=== PATIENT | male | born 1950 | race Caucasian/White ===

== ENCOUNTER 2018-07-12 08:15 | Day surgery (SDC) | payer OTHER, BC ==
[2018-07-12 08:19] VITALS: BMI 30.7
[2018-07-12] MEDS ORDERED: Verapamil 2 ML ONE (08:31)
[2018-07-12] MEDS ORDERED: Phenylephrine 10 mg/ml Inj ONE (08:31)
[2018-07-12] MEDS ORDERED: Lidocaine PF 2% (5 ml) Inj (For Cardiac Arrhy) ONE (08:31)
[2018-07-12] MEDS ORDERED: Nitroglycerin 50mg in D5W 50 MG/250 ML BOTTLE IV ONE (08:32)
[2018-07-12] MEDS ORDERED: Iodixanol 320 MG/ML 100 ML BOTTLE IV ONE (08:32)
[2018-07-12] MEDS ORDERED: Midazolam 2 MG/2 ML VIAL ONE ×3 (08:32→09:44)
[2018-07-12] MEDS ORDERED: Iodixanol 320 MG/ML 200 ML BOTTLE IV ONE (08:32)
[2018-07-12] MEDS ORDERED: Adenosine 90 mg/30mL IV ONE (08:44)
[2018-07-12] MEDS ORDERED: DiphenhydrAMINE 50 mg/ml Inj ONE (09:41)
[2018-07-12] MEDS ORDERED: Iodixanol 320 mg/ml 150 ml Bottle IV ONE (09:47)
[2018-07-12] MEDS ORDERED: Sodium Chloride 0.9% 1,000 ML IV SCH (10:30)
[2018-07-12] MEDS ORDERED: A C T ELECTRONICS XX ONE (13:26)
[2018-07-12] MEDS ORDERED: Bacitracin 500 Units/gm Oint Foilpak UD ONE (14:45)
--- NOTE | 2018-07-12 19:59 | CARDCATH ---
PROCEDURE DATE: 07/12/2018 INDICATIONS: Mr. Betancourt is a pleasant 68-year-old male with past medical history significant for hypertension, dyslipidemia, who had recently undergone angioplasty and stenting of right coronary artery in [facility] by Dr. Simon Centeno and was scheduled to undergo a staged intervention of the LAD, presented with complaints of chest pain, unstable angina. The patient was ruled in for acute coronary syndrome. Troponins peaked up to 17; therefore, he was brought to the wharf laborer for evaluation and treatment of non-ST elevation NV. PROCEDURE PERFORMED: Left heart catheterization with selective left and right coronary angiogram via left radial arterial approach, 6-Albanian left radial arterial access, PTCA stenting of mid RCA ruptured plaque, deployment of 2.75 x 34 Hardik drug-eluting stent, lesion reduction from 99% down to 0% NELIA 3 flow postdilatation with 3.0 noncompliant balloon. PTCA stenting of mid LAD 75%-80% stenosis, deployment of 2.75 x 22 Hardik drug-eluting stent, lesion reduction from 75% down to 0%, NELIA 3 flow. PTCA stenting of proximal LAD two tandem 80% lesions, deployment of 3.5 x 34 Hardik drug-eluting stent, lesion reduction down to 0% NELIA 3 flow. Wrist band for hemostasis. TECHNIQUES OF PROCEDURE: After obtaining informed consent, the patient was brought to the cardiac wharf laborer at [facility] for evaluation of non-STEMI. After the patient was draped and prepped in the usual sterile fashion, a 6-Albanian left radial arterial access was obtained under ultrasound guidance with micropuncture needle. JR4 diagnostic catheter was used to engage the right coronary system. Angiograms were obtained in two orthogonal views. Subsequently, over exchange length J-wire, JL4 diagnostic catheter was used to engage the left coronary system and angiograms were obtained in different orthogonal views. Subsequently, over exchange length J-wire, pigtail catheter was advanced into the LV and LV gram was obtained in the BUNN view. HEMODYNAMICS: Left ventricular end-diastolic pressure was 22 mmHg. There was no gradient noted upon the aortic valve pullback. There was no AI and no MR. Left ventricular ejection fraction estimated to be 60%-65%. CORONARY ANATOMY: Left main is a large-sized vessel, it bifurcates into left anterior descending and left circumflex artery. Left main is free of any obstructive disease, large 5-6 mm vessels. LAD is a large-sized vessel, it gives off 4 small sized diagonal branches. Proximal LAD has 2 tandem lesions, 80% stenosis and mid LAD has 75% stenosis. Left circumflex is a large-sized vessel runs in the AV groove, has mild luminal irregularities in the mid segment, it gives off 3 small obtuse marginal branches. Ramus intermedius is a large-sized vessel, it is free of any obstructive disease. RCA large-sized vessel has proximal stent patent, mid segment ruptured plaque 99% lesion. Right PDA has a patent stent, PLV slow flow noted. TECHNIQUES OF INTERVENTION: After reviewing the above angiographic findings, it was decided to proceed with the culprit vessel revascularization. Using EBU guiding catheter to engage the right coronary system, Prowater wire was used across the lesion and was parked into the distal PDS. Subsequently, the IVUS catheter was used to evaluate the lesion which showed a ruptured plaque and diffuse long segment stenosis in between the two segments. At this point, the lesion was pre-dilated with a 2.5 x 20 balloon and stented with a 2.75 x 34 Jasper drug-eluting stent. Final angiograms done showed good NELIA 3 flow and regeneration down to 0% NELIA 3 flow. After revascularization of the culprit vessel, attention was then paid to the non-culprit vessel LAD. Because of the patient's second procedure, the patient was asked if he would want the other vessel to be revascularized as limited dye was used at this time and was less than 100 mL. The patient wanted to proceed with the revascularization of the LAD. At this point, we used XB 3.5 guiding catheter to engage the left main. Prowater wire was used across the lesion into the distal LAD. Subsequently, the mid LAD lesion was predilated with a 2.0 balloon and subsequently stented with a 2.75 x 22 Jasper drug-eluting stent. Subsequently, prox LAD lesion was predilated with a 3.0 noncompliant balloon and subsequently stented with a 3.5 x 34 Hardik drug-eluting stent. Final angiogram showed regeneration down to 0% with NELIA-3 flow. IMPRESSION: Successful revascularization of the culprit vessel right coronary artery ruptured plaque, deployment of 2.75 x 34 Jasper drug-eluting stent in the mid right coronary artery. Successful revascularization of the left anterior descending high-grade stenosis, deployment of 2.75 x 22 in the mid left anterior descending and a 3.5 x 34 in the proximal left anterior descending. Final angiograms done showed lesion reduction down to 0%. RECOMMENDATIONS: The patient is to continue his dual-antiplatelet therapy aspirin and Brilinta. He was already taking Brilinta. He is to resume his home medications which include Benicar 40 mg, aspirin, Brilinta, atorvastatin, Toprol-XL. He will also resume his antihyperlipidemic medications. Currently, he is on gemfibrozil and atorvastatin along with fish oil. I would recommend to increase the dose of atorvastatin to 80 mg and add Zetia and possibly discontinue the gemfibrozil. Continue the patient on metformin for his diabetes. The patient is to be transferred back to [facility] in 3 hours. We will check his serial troponins later in the evening and possibly discharge the patient tomorrow morning. Thank you Dr. Rodriguez for letting me to participate in the care of your patient. Kelby Moreno MD [facility]ASK[facility]
[2018-07-12 20:29] VITALS: RESP 18; TEMP 97.1
[2018-07-12 20:55] VITALS: BP 157/85; PULSE 79
[2018-07-13] MEDS ORDERED: Metoprolol Succinate 50 mg XL Tab PO SCH (10:00)
== END 2018-07-12 17:25 | disposition short-term general hospital (02) ==
LOC: CATH 08:15 → 2RSO 10:43 → CATH 17:25
PROVIDERS: ATTEND Internal Medicine Interventional Cardiology
DX: I21.4 Non-ST elevation (NSTEMI) myocardial infarction (principal); I25.10 Atherosclerotic heart disease of native coronary artery without angina pectoris; E78.5 Hyperlipidemia, unspecified; I10 Essential (primary) hypertension; E11.9 Type 2 diabetes mellitus without complications; Z95.5 Presence of coronary angioplasty implant and graft
CPT/HCPCS: 82948; 85175; 85576; 92978; 93458; 99152; 99153; C1725 ×2; C1753; C1769 ×2; C1874 ×3; C1887 ×6; C1894; C9600; C9601; J0153; J1200; J1644 ×2; J2250; J3010; J7030; Q9966; Q9967 ×2